=== PATIENT | female | born 1995 | race Caucasian/White ===

== ENCOUNTER → 2023-09-27 | Outpatient (CLI) | payer OTHER | LOC: LAB SHORT 13:41 → LAB 13:41 | DX: O20.9 Hemorrhage in early pregnancy, unspecified (principal) | CPT/HCPCS: 84702 ==

== ENCOUNTER → 2024-09-21 | Outpatient (CLI) | payer OTHER | END | disposition home or self-care (01) | LOC: LAB 16:50 → LAB SHORT 16:50 | DX: Z34.83 Encounter for supervision of other normal pregnancy, third trimester (principal) | CPT/HCPCS: 87081; 87150 ==

== ENCOUNTER 2024-10-12 07:10 | Inpatient (IN) | payer OTHER ==
[2024-10-12] VITALS (45 sets, daily range): BP systolic 76–133; BP diastolic 50–77
[~2024-10-12] VITALS: Ht 172.7 cm; Wt 102.7 kg
[2024-10-12] MEDS ORDERED: Penicillin G Potassium 5,000,000 UNITS in NS 250 ML IV ONE (07:20)
[2024-10-12] MEDS ORDERED: Misoprostol 200 MCG Tab PR PRN ×2 (07:20→14:45)
[2024-10-12] MEDS ORDERED: FentaNYL Citrate 50 MCG/ML 2 ML Injection IV PRN (07:20)
[2024-10-12] MEDS ORDERED: Methylergonovine Maleate 0.2MG / ML 1ML Amp IM PRN ×2 (07:20→14:45)
[2024-10-12] MEDS ORDERED: Acetaminophen 500 MG Tab PO PRN ×2 (07:20→14:50)
[2024-10-12] MEDS ORDERED: Ondansetron HCl 2 MG / ML 2ML Vial IV PRN (07:20)
[2024-10-12] MEDS ORDERED: Lactated Ringer's 1,000 ML IV PRN (07:20)
[2024-10-12] MEDS ORDERED: Carboprost Tromethamine 250 MCG/ML 1ML Amp IM PRN ×2 (07:20→14:45)
[2024-10-12] MEDS ORDERED: Misoprostol 200 MCG Tab BC PRN (07:20)
[2024-10-12] MEDS ORDERED: Oxytocin 10 Unit / ML Vial IM PRN (07:20)
[2024-10-12] MEDS ORDERED: OXYTOCIN/RINGER'S LACTATE 500 ML IV PRN (07:20)
[2024-10-12] MEDS ORDERED: FentaNYL 2mcg/ml-Bup 0.1% Epd 250 ML EPI PRN (07:25)
[2024-10-12] MEDS ORDERED: Calcium Carbonate 500 MG Tab Chew PO PRN (07:25)
[2024-10-12] MEDS ORDERED: OXYTOCIN/RINGER'S LACTATE 500 ML IV SCH ×2 (07:25→14:45)
[2024-10-12] MEDS ORDERED: Lactated Ringer's 1,000 ML IV SCH ×4 (07:25→14:50)
[2024-10-12] MEDS ORDERED: ePHEDrine Sulfate 50 MG/ML 1ML Injection XX PRN (07:25)
[2024-10-12] MEDS ORDERED: PRENATAL TABLE1 EAC2 PO (07:28)
[2024-10-12] MEDS ORDERED: Tranexamic Acid 1,000 MG in NS 100 ML IV SCH (07:35)
[2024-10-12 08:17] LABS: BASOPHILS ABSOLUTE AUTO 0.03 K/mm3 (0.00-0.23); BASOPHILS PERCENT AUTO 0 % (0-2); EOSINOPHILS ABSOLUTE AUTO 0.05 K/mm3 (0.00-0.68); EOSINOPHILS PERCENT AUTO 1 % (0-6); Hematocrit 35.6 % (33.0-51.0); Hemoglobin 12.2 g/dL (11.5-16.0); IMMATURE GRAN ABSOLUTE AUTO 0.04 K/mm3 (0.00-0.10); IMMATURE GRAN PERCENT AUTO 0 % (0-1); LYMPHOCYTES ABSOLUTE AUTO 2.76 K/mm3 (0.84-5.20); LYMPHOCYTES PERCENT AUTO 30 % (21-46); MONOCYTES ABSOLUTE AUTO 0.58 K/mm3 (0.16-1.47); MONOCYTES PERCENT AUTO 6 % (4-13); Mean Corpuscular HGB 28.6 pg (26.0-34.0); Mean Corpuscular HGB Conc 34.3 g/dL (31.5-36.5); Mean Corpuscular Volume 83 fL (80-100); Mean Platelet Volume 10.6 fL (9.1-12.4); NEUTROPHILS ABSOLUTE AUTO 5.85 K/mm3 (1.96-9.15); NEUTROPHILS PERCENT AUTO 63 % (41-73); Platelet Count 152 K/mm3 (150-400); RDW Coefficient Variation 13.5 % (11.7-14.2); RDW Standard Deviation 40.8 fL (35.1-46.3); Red Blood Cell Count 4.27 M/mm3 (3.80-5.20); White Blood Cell Count 9.31 K/mm3 (4.00-11.30)
--- NOTE | 2024-10-12 09:04 | NUR ---
PER SILVIA, EFW 7-13
[2024-10-12] MEDS ORDERED: Penicillin G Potassium 2,500,000 UNITS in Dextrose 5% 100 ML IV SCH (12:00)
[2024-10-12] MEDS ORDERED: Oxytocin 10 Unit / ML Vial IM ONE (14:45)
[2024-10-12] MEDS ORDERED: Benzocaine Topical Anesthetic Spray 60GM TOP PRN (14:45)
[2024-10-12] MEDS ORDERED: Lanolin Cream TOP PRN (14:45)
[2024-10-12] MEDS ORDERED: Ketorolac Tromethamine 30mg Vial IV PRN (14:50)
[2024-10-12] MEDS ORDERED: FLU VACC TS2024-25(6MOS UP)/PF 45 MCG/0.5 ML SYRINGE IM SCH (14:50)
[2024-10-12] MEDS ORDERED: Witch Hazel/Glycerin PADS TOP PRN (14:50)
[2024-10-12] MEDS ORDERED: Docusate Sodium 100 MG Cap PO PRN (14:50)
[2024-10-12] MEDS ORDERED: Ibuprofen 400 MG Tab PO PRN (14:50)
[2024-10-13 04:16] VITALS: BP 118/63
[2024-10-13 07:19] VITALS: BP 120/73
--- NOTE | 2024-10-13 08:39 | NUR ---
Pt. is awake in bed and welcomes my visit. Spouse is present as well as a friend holding the baby girl. Facilitate a short life review and establish rapport. The family is known to this plastics tooling engineer from the community. Gave a blessing for the baby and prayed for the family. Family verbalized gratirude for the spiritual care visit.
[2024-10-13] MEDS ORDERED: Prenatal Vit/FE Fumarate/FA 1 Tab PO SCH (09:00)
[2024-10-13] MEDS ORDERED: Hydrocortisone 2.5% Cream 30 gm Tube PR ONE (11:10)
[2024-10-13 11:28] VITALS: BP 116/80
[2024-10-13] MEDS ORDERED: IBUP800 PO (11:41)
[2024-10-13] MEDS ORDERED: PRAHYD1AEA PR (11:41)
[2024-10-13] MEDS ORDERED: DOCU100 PO (11:41)
--- NOTE | 2024-10-13 15:32 | NUR ---
dc instructions reviewed, questions answered. will follow up here at f/u clinic. also will make appt with fran for follow up within a few weeks. discharged home with and at side.
== END 2024-10-13 15:25 | disposition home or self-care (01) | DRG 807 ==
LOC: BC 07:10 → OBS 07:10 → BC 07:24
PROVIDERS: ADMIT Advanced Practice Midwife
PROC: 10E0XZZ Delivery of Products of Conception, External Approach (ICD-10-PCS; principal; 2024-10-12)
PROC: 10907ZC Drainage of Amniotic Fluid, Therapeutic from Products of Conception, Via Natural or Artificial Opening (ICD-10-PCS; 2024-10-12)
PROC: 4A1HXCZ Monitoring of Products of Conception, Cardiac Rate, External Approach (ICD-10-PCS; 2024-10-12)
DX: O99.214 Obesity complicating childbirth (principal); Z37.0 Single live birth; Z3A.39 39 weeks gestation of pregnancy; O99.824 Streptococcus B carrier state complicating childbirth; O77.0 Labor and delivery complicated by meconium in amniotic fluid; O99.52 Diseases of the respiratory system complicating childbirth; J45.909 Unspecified asthma, uncomplicated
CPT/HCPCS: 36415; 51702; 85025; 86850; 86900; 86901; A9270; J1885; J2540; J2590; J7050; J7120